=== PATIENT | male | born 1995 | race Caucasian/White ===

== ENCOUNTER 2021-02-22 08:57 | Outpatient (CLI) | payer OTHER ==
--- NOTE | 2021-02-22 10:03 | SLEEP CARE CONSULTATION ---
Information from patient questionnaire entered by Phillip Lucas MA. I have reviewed and concur with the information entered by Phillip Lucas MA. This document represents the service I personally performed and the decisions made by me, Nancy Hussein ARNP. History of Present Illness Service Date and Time: 02/22/2021 0857 Reason for Visit: New patient (ONSET 11/25, NO PRIORS) Chief Complaint: reports: Insomnia, Unrefreshed sleep, Snoring, Excessive daytime sleepiness, Fatigue, Frequent awakenings at night. denies: Observed pauses in breathing Date of Onset: 3 YEARS Usual bedtime: 11:00 PM Time it takes to fall asleep: SOMETIMES HOURS, SOMETIMES IMMEDIATE. Snores at night: Yes Observed to quit breathing while asleep: No Sleeps alone due to snoring: No Number of times waking at night: 2-5 Reasons for waking at night: reports: Snoring (1-2 times), Bathroom, Other (unknown reasons) Toss, Turn, or Twitch while sleeping: Yes Recalls having dreams: Yes Feels refreshed in the morning: No Morning headache: No Sleepy or fatigued during the day: Yes Ever fallen asleep while driving: Yes (drowsy driving, no accidents; just 1-2 times) Takes day naps: Yes (tries not to nap; sometimes will find himself falling asleep in his chair) Dreams during day naps: No Prior sleep studies: No Additional HPI information: I had the pleasure of seeing LINDA BLUNT today regarding the possibility of him having a sleep disorder. His current complaints are excessive daytime sleepiness, fatigue, frequent night awakenings, insomnia and unrefreshed sleep. He states sometimes he falls asleep really fast and other times he is awake all night. In last two weeks is sleeping more but not being able to sleep at night has been more of the norm. He has been told he snores but no pauses in breathing. He states this started about 3 years ago and this was a year or so after he joined the [email or web address]. He states he rarely feels rested in the morning but will wake up alert and ready to go, sometimes at 3 AM. He is on a set day schedule for the last year. He has done shift work in past. He is on Adderall for his ADD. He works out and is trying to increase muscle mass. 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 Patient is and lives in [place]. Have you smoked in the past 12 months: No Cigarettes per day (20/pack): 10 Years of smokin Quit date: 2017 Smoking Pack Years: 2.5 Alcohol use: Yes Alcohol amount and frequency: 1-2 X WEEKLY Caffeine use: Yes Caffeine amount and frequency: 1-2 CUPS X DAILY Family History Family history of sleep disordered breathing: Yes Family Hx Sleep Apnea: Father: Snoring, Other: Sleep apnea - Treated (UNCLE) Allergies and Home Medications Drug allergies reviewed: Yes (NKDA) Home medication list reviewed: Yes Allergy and home medication list: Adderall Review of Systems Weight gain over past 5 years: 40-50 Cardiovascular: reports: high blood pressure (last few times taken) Gastrointestinal: denies: heartburn Neurological: reports: head trauma (multiple times hitting head, no evals after them). denies: headaches Psychiatric: reports: Attention Deficit Hyperactivity, anxiety, depression Ear/Nose/Throat: reports: nasal congestion. denies: dry mouth/throat, injury to nose, tonsillectomy, wisdom teeth removed Endocrine: denies: thyroid disease Musculoskeletal: reports: back pain Physical Exam Vital signs obtained and entered by: Roula LUCAS CMA AAMA Blood Pressure: 145/98 (RIGHT, PULES 72) Cuff size: wrist Heart Rate: 74 O2 Saturation: 98 (WITH PAPER MASK) Height: 6 ft Weight: 219 lb Body Mass Index: 29.7 BMI Classification: Overweight Neck circumference: 16 (inches) Mouth and throat: narrow oropharynx Soft palate: long Hard palate: arched Uvula: long Uvula visualization: 50% Mallampati Class II Tongue: enlarged in size with teeth samaniego on lateral edges Tonsils: small Heart: regular rate and rhythm Lungs: clear bilaterally Impression and Plan 1. Suspected Obstructive Sleep Apnea-Hypopnea Syndrome, as suggested by a history of loud and irregular snoring, frequent awakening during the night, unrefreshed sleep, cognitive impairment, and excessive daytime sleepiness. Narrow oropharynx and obesity are common predisposing factors for obstructive sleep apnea-hypopnea syndrome. I recommend proceeding to polysomnography to confirm the diagnosis and to assess severity. If the patient has significant sleep disordered breathing, a manual CPAP titration study will also be performed to find the optimal treatment pressure. I informed the patient of what the sleep studies involve and after some discussion, obtained agreement to proceed. The pathophysiology of obstructive sleep apnea-hypopnea syndrome was discussed with the patient and health risks of cardiovascular and cerebrovascular disease if not treated. Risks of drowsy driving discussed in detail and patient advised to avoid long distance driving and to well puller at the first sign of drowsiness. Patient agreed to plan. * Schedule polysomnography +- manual CPAP titration study and return in 1-2 weeks after the study to discuss result and initiate therapy. * Avoid long distance driving or driving when feeling sleepy. * Avoid alcohol, sedative and muscle relaxant around bedtime. * Attempt to lose weight. * Review instructions provided by trained office staff on how to prepare for the sleep study. * Return for follow-up after sleep study completed. Counseling Topics: Weight loss health impact Visit Type: In Office Time Spent with Patient (minutes): 30 Provider Statement: I spent 100% of the Face to Face Visit with the patient with greater than 50% spent counseling the patient and coordination of care.
[2021-02-22 10:04] VITALS: BP 145/98
== END 2021-02-22 08:58 | disposition home or self-care (01) ==
LOC: SC 08:57
PROVIDERS: ATTEND Nurse Practitioner Family
DX: R06.83 Snoring (principal); G47.8 Other sleep disorders; G47.10 Hypersomnia, unspecified; R41.89 Other symptoms and signs involving cognitive functions and awareness
CPT/HCPCS: 99203; 99212

== ENCOUNTER 2021-04-10 20:40 | Outpatient (CLI) | payer OTHER | END 2021-04-10 20:41 | disposition home or self-care (01) | LOC: SC 20:40 | PROVIDERS: ATTEND Nurse Practitioner Family | DX: R06.83 Snoring (principal); G47.8 Other sleep disorders; R53.83 Other fatigue; G47.10 Hypersomnia, unspecified | CPT/HCPCS: 95810 ==

== ENCOUNTER 2021-04-22 14:01 | Outpatient (CLI) | payer OTHER ==
[2021-04-22 14:21] VITALS: BP 118/72
--- NOTE | 2021-04-22 14:21 | SLEEP CARE CONSULTATION ---
Information from patient questionnaire entered by Phillip Gonzales MA. I have reviewed and concur with the information entered by Phillip Gonzales MA. This document represents the service I personally performed and the decisions made by Jovita marrero Caren J, ARNP. History of Present Illness Service Date and Time: 04/22/2021 1401 Initial Marlow Sleepiness Scale score: 7 (IN 2021) Current Marlow Sleepiness Scale score: 4 (04/2021) Additional HPI information: LINDA BLUNT returns for follow up and results of the recently performed polysomnography. The patient was informed of the following findings: No significant sleep disordered breathing with an average AHI of 1.4 and zeus oxygen saturation of 92%. I explained the pathophysiology behind obstructive sleep apnea. Patient does not have sleep apnea and was advised how weight gain could increase the risk of developing sleep apnea in the future. Patient has light to moderate snoring. Snoring can be reduced by weight loss. Weight loss is best achieved with diet consult. Patient instructed to contact PCP for referral. Snoring can also be treated with an oral appliance from a dentist. Advised to check insurance coverage. In addition, an ENT evaluation can be do to see if other treatment is indicated. Patient counseled not drink alcohol less than 4 hours before bedtime as it can increase snoring and apnea. Patient was cautioned about risks of drowsy driving until sleepiness symptoms resolve. Sleep Study - Results Type of Sleep Study: Polysomnography (F/U POLY) Prior sleep studies: No Polysomnography/Home Sleep Study results: IMPRESSION: The quality of the study is good. The patient had slightly reduced sleep efficiency due to frequent awakenings during the night. The sleep architecture was abnormal for sleep fragmentation and reduced amount of time spent in slow wave sleep (N3). Respiratory monitoring showed no significant sleep disordered breathing (AHI = 1.4) or hypoxia (zeus oxygen saturation of 92%). The patient slept adequately in supine position (supine AHI = 0.4; non-supine = 2.06). Snore was infrequent and light in intensity. There was no significant periodic leg movement of sleep. Cardiac rhythm was normal sinus rhythm without significant arrhythmia. No abnormal behavior (parasomnia) observed during the night. Allergies and Home Medications Home medication list reviewed: Yes (no changes) Review of Systems Review of systems same as previous: Yes (no changes) Physical Exam Vital signs obtained and entered by: LILIAN STONE Blood Pressure: 118/72 (RIGHT, PULSE 86, RESP 14, ) Cuff size: wrist Heart Rate: 91 O2 Saturation: 98 (PAPER MASK) Height: 6 ft Weight: 220 lb (WITH CLOTHES) Body Mass Index: 29.8 BMI Classification: Overweight Impression and Plan 1. Snoring but no significant sleep disordered breathing. Patient advised that often weight loss will reduce snoring as well as apnea risk. An oral appliance can also be used for snoring. This would require a dental consultation. Patient cautioned not to use other online appliances as can cause bite issues. A list of accredited dentists in [facility] and one local dentist who makes oral appliances is available in office. Patient is advised to check if insurance will cover. An ENT consult can also be helpful to determine if any other treatment is an option. 2. Insomnia, unspecified. Insomnia is generally caused by an irregular sleep schedule, spending too much time in bed, napping, caffiene, electronics, lack of a relaxing bedtime ritual and clock watching. Other factors can include anxiety/depression, pain, medications, and obstructive sleep apnea. First I counseled the patient on the importance of a regular sleep schedule, starting with the wake time. I explained the homestatic sleep drive and how maintaining a regular wake time will allow the patient to be tired enough to sleep 15-16 hours later. By waking at the same time, the patient will also feel more alert. This can also be assisted by exposure to bright light for a minimum of 15 minutes a day upon waking. Most caffeine is to be stopped after lunch as it has a 6 hour half life and reduce sleep latency and efficiency. In addition, it is important to have a relaxing ritual about 30-60 minutes before bedtime to allow the mind/body transition from an active day to sleep. Electronics should be avoided 1-2 hours before bedtime as the bright light can reduce the endogenous melatonin and the activity of the computer, tablet, cell phone etc can be alerting. TV is okay but content needs to be relaxing and the brightness dimmed. A warm bath or shower is another way to assist transition to sleep. In addition, it is important to have a sleep environment conducive to sleep such as a comfortable bed, comfortable temperature and quiet. Instead if awakened after sleep, the patient is to position for comfort or use bathroom and return to sleep. If unable to go to sleep in an estimated 20 minutes of more, it is advised to leave the bedroom and engage in a quiet activity until sleepy enough to return to bed. If unable to sleep due to things on the mind, it is recommended to write out the concerns or list to do as a release then return to a quiet activity until sleepy enough to return to bed. This is to be repeated as often as necessary to associate the bed with sleep and not frustration to get to sleep. [facility] How to Sleep Better and Understanding Insomnia pamphlets given and reviewed. * Attempt to lose weight * Avoid alcohol consumption near bedtime * The patient is cautioned about driving until sleepiness is completely resolved. * Return as needed for follow up. Counseling Topics: Weight loss health impact Visit Type: In Office Time Spent with Patient (minutes): 20 Provider Statement: I spent 100% of the Face to Face Visit with the patient with greater than 50% spent counseling the patient and coordination of care.
== END 2021-04-22 14:02 | disposition home or self-care (01) ==
LOC: SC 14:01
PROVIDERS: ATTEND Nurse Practitioner Family
DX: R06.83 Snoring (principal); G47.00 Insomnia, unspecified; E66.3 Overweight; Z68.29 Body mass index [BMI] 29.0-29.9, adult
CPT/HCPCS: 99212; 99213

== ENCOUNTER 2021-05-23 10:33 | Emergency (ER) | payer OTHER ==
[2021-05-23 11:05] LABS: BILIRUBIN,URINE NEGATIVE (NEGATIVE); GLUCOSE, URINE (UA) NEGATIVE (NEGATIVE); KETONES,URINE (UA) NEGATIVE (NEGATIVE); LEUKOCYTE ESTERASE, URINE NEGATIVE (NEGATIVE); NITRITE,URINE NEGATIVE (NEGATIVE); OCCULT BLOOD,URINE NEGATIVE (NEGATIVE); PROTEIN,URINE NEGATIVE (NEGATIVE); UROBILINOGEN,URINE 0.2 (NORMAL) E.U./dL (NORMAL)
[2021-05-23 11:07] LABS: BASOPHILS % (AUTO) 0.5 %; EOSINOPHILS # (AUTO) 0.1 10^3/uL (0.0-0.7); EOSINOPHILS % (AUTO) 1.4 %; HCT - HEMATOCRIT 43.4 % (42.0-52.0); HGB - HEMOGLOBIN 15.6 g/dL (14.0-18.0); LYMPHOCYTES % (AUTO) 10.9 %; MEAN CORPUSCULAR HEMOGLOBIN 31.8 pg (27.0-31.0); MEAN CORPUSCULAR HGB CONC 35.9 g/dL (32.0-36.0); MEAN CORPUSCULAR VOLUME 88.4 fL (80.0-94.0); MEAN PLATELET VOLUME 9.3 fL (7.4-11.4); MONOCYTES # (AUTO) 0.6 10^3/uL (0.0-1.0); MONOCYTES % (AUTO) 7.1 %; NEUTROPHILS # (AUTO) 6.9 10^3/uL (1.5-6.6); NEUTROPHILS % (AUTO) 79.6 %; PLT - PLATELET COUNT 285 10^3/uL (130-450); RED BLOOD COUNT 4.91 10^6/uL (4.70-6.10); RED CELL DISTRIBUTION WIDTH 11.6 % (12.0-15.0); WHITE BLOOD COUNT 8.7 x10^3/uL (4.8-10.8)
[2021-05-23 11:17] LABS: CLARITY,URINE CLEAR (CLEAR)
[2021-05-23 11:22] LABS: ALBUMIN 4.3 g/dL (3.2-5.5); ALBUMIN/GLOBULIN RATIO 1.4 (1.0-2.2); BILIRUBIN,TOTAL 1.3 mg/dL (0.2-1.0); CREATININE 0.9 mg/dL (0.6-1.2); POTASSIUM 3.8 mmol/L (3.5-5.0); TOTAL PROTEIN 7.3 g/dL (6.7-8.2)
--- NOTE | 2021-05-23 12:32 | ED Physician Documentation ---
PD HPI ABD PAIN - Stated complaint Stated Complaint: LT SIDE PX - Chief complaint Chief Complaint: Abd Pain - History obtained from History obtained from: Patient - History of Present Illness Timing - duration: Days (4) Timing - details: Gradual onset Pain level max: 7 Pain level now: 4 Quality: Aching, Pain Location: LLQ Associated symptoms: No: Nausea, Vomiting, Hematemesis, Melena, Hematochezia - Additional information Additional information: 25-year-old male presents to the emergency department with left lower quadrant abdominal pain. Started 3 to 4 days ago. Nothing seems to make the pain better or worse. Has had some constipation. States normal bowel movement today. No blood in the stool. Has not had similar symptoms previously. No family history of inflammatory bowel disease. Review of Systems Constitutional: denies: Fever, Chills Respiratory: denies: Cough GI: denies: Vomiting, Hematemesis, Bloody / black stool : denies: Dysuria, Frequency, Hesitancy Skin: denies: Rash Musculoskeletal: denies: Neck pain, Back pain Neurologic: denies: Headache PD PAST MEDICAL HISTORY - Past Medical History Past Medical History: No - Present Medications Home Medications: Ambulatory Orders Medication Instructions Recorded Confirmed No Known Home Medications 05/23/21 05/23/21 - Allergies Allergies/Adverse Reactions: Allergies Allergy/AdvReac Type Severity Reaction Status Date / Time No Known Drug Allergies Allergy Verified 05/23/21 10:46 - Social History Does the pt smoke?: No Smoking Status: Never smoker - Immunizations Immunizations are current?: Yes PD ED PE NORMAL - Vitals Vital signs reviewed: Yes - General General: Alert and oriented X 3, No acute distress - HEENT HEENT: Moist mucous membranes - Neck Neck: Supple, no meningeal sign - Cardiac Cardiac: RRR - Respiratory Respiratory: No respiratory distress, Clear bilaterally - Abdomen Abdomen: Soft, Non distended, Other (Tender palpation left lower quadrant. No peritoneal signs.) - Back Back: No CVA TTP, No spinal TTP - Derm Derm: Warm and dry - Neuro Neuro: Alert and oriented X 3 - Psych Psych: Normal mood, Normal affect Results - Vitals Vitals: Vital Signs - 24 hr 05/23/21 05/23/21 05/23/21 10:46 13:27 14:03 Temperature 37.1 C Heart Rate 105 H 98 75 Respiratory 18 18 15 Rate Blood Pressure 157/104 H 110/69 114/78 O2 Saturation 97 97 99 Oxygen O2 Source Room air - Labs Labs: Laboratory Tests 05/23/21 05/23/21 05/23/21 10:55 11:03 11:03 WBC 8.7 RBC 4.91 Hgb 15.6 Hct 43.4 MCV 88.4 MCH 31.8 H MCHC 35.9 RDW 11.6 L Plt Count 285 MPV 9.3 Neut # (Auto) 6.9 H Lymph # (Auto) 1.0 L [place] # (Auto) 0.6 Eos # (Auto) 0.1 Baso # (Auto) 0.0 Absolute Nucleated RBC 0.00 Nucleated RBC % 0.0 Sodium 131 L Potassium 3.8 Chloride 96 L Carbon Dioxide 26 Anion Gap 9.0 BUN 13 Creatinine 0.9 Estimated GFR (MDRD) 101 Glucose 110 H Calcium 9.0 Total Bilirubin 1.3 H AST 30 ALT 45 Alkaline Phosphatase 47 Total Protein 7.3 Albumin 4.3 Globulin 3.0 Albumin/Globulin Ratio 1.4 Lipase 27 Urine Color LIGHT YELLOW Urine Clarity CLEAR Urine pH 7.0 Ur Specific [place] <=1.005 Urine Protein NEGATIVE Urine Glucose (UA) NEGATIVE Urine Ketones NEGATIVE Urine Occult Blood NEGATIVE Urine Nitrite NEGATIVE Urine Bilirubin NEGATIVE Urine Urobilinogen 0.2 (NORMAL) Ur Leukocyte Esterase NEGATIVE Ur Microscopic Review NOT INDICATED Urine Culture Comments NOT INDICATED - Rads (name of study) CT abdomen pelvis Radiology: Final report received, EMP read contemporaneously, See rad report PD MEDICAL DECISION MAKING - ED course Complexity details: reviewed results, re-evaluated patient, considered differential, d/w patient, d/w family ED course: 25-year-old male with left lower quadrant abdominal pain. Has a mild degree of focal inflammatory change in the distal descending colon. Afebrile. Pain well controlled in the emergency department. Possible ulcerative colitis? Recommend that he follow-up with his doctor for further care. No indication for antibiotics at this time. Afebrile. Patient and family counseled regarding signs and symptoms for which I believe and urgent re-evaluation would be necessary. Patient with good understanding of and agreement to plan and is comfortable going home at this time This document was made in part using voice recognition software. While efforts are made to proofread this document, sound alike and grammatical errors may occur. IMPRESSION: A mild degree of focal inflammatory change can be seen involving the distal descending colon. No findings of perforation or abscess are seen. Borderline prominent mesenteric lymph nodes can be seen, which are nonspecific, commonly seen in patients with chronic inflammatory change. Departure - Departure Disposition: 01 Home, Self Care Clinical Impression: Abdominal pain Qualifiers: Abdominal location: left lower quadrant Qualified Code(s): R10.32 - Left lower quadrant pain Condition: Good Instructions: ED Colitis Ulcerative, ED Abdominal Pain Unkn Cause Male Follow-Up: JOSH WINCHESTER DO [Primary Care Provider] - Within 1 week David River MD [Provider Admit Priv/Credential] - Dulce Vásquez MD [Provider Admit Priv/Credential] - Comments: Your CT scan does show inflammation in the left lower quadrant. There is concern for possible inflammatory bowel disease such as ulcerative colitis. It is recommended that you have a colonoscopy. Please return if you worsen. Follow-up with your doctor for further care. Your CT results are below. IMPRESSION: A mild degree of focal inflammatory change can be seen involving the distal descending colon. No findings of perforation or abscess are seen. Borderline prominent mesenteric lymph nodes can be seen, which are nonspecific, commonly seen in patients with chronic inflammatory change. Discharge Date/Time: 05/23/21 14:05
[2021-05-23] MEDS ORDERED: IOVERSOL 320 100 ML VIAL IVP ONE ×2 (12:55→15:14)
--- NOTE | 2021-05-23 13:09 | CT Report ---
PROCEDURE: Abdomen/Pelvis W INDICATIONS: LLQ abd pain CONTRAST: IV CONTRAST: Optiray 320 ml: 100 PO CONTRAST: *NO PO CONTRAST TECHNIQUE: After the administration of IV contrast, 5 mm thick sections acquired from the diaphragms to the symp hysis. 5 mm thick coronal and sagittal reformats were acquired. For radiation dose reduction, the f ollowing was used: automated exposure control, adjustment of mA and/or kV according to patient size. COMPARISON: None. FINDINGS: Image quality: Excellent. ABDOMEN: Lung bases: Lung bases are clear. Heart size is normal. Solid organs: Liver and spleen are normal in size and enhancement. Gallbladder wall does not appear thickened. Biliary system is non dilated. Pancreas enhances normally. No adrenal nodules. Kidn eys demonstrate normal size and enhancement, without hydronephrosis. Peritoneum and bowel: In this patient with this given history, scrutiny is given to left lower quadr ant. Within the distal descending colon, focal bowel wall thickening and inflammatory change can be s een, as on series 3 image 67. The colon otherwise demonstrates an unremarkable appearance. No dilated loops of small bowel are seen . A normal appendix is incidentally noted. Nodes and vessels: Borderline prominent mesenteric lymph nodes are seen. No retroperitoneal adenopat hy by size criteria. Aorta and inferior vena cava are normal in size. Miscellaneous: No ventral hernias. PELVIS: Genitourinary: Bladder wall thickness is normal. Miscellaneous: No inguinal hernias or adenopathy. Bones: No suspicious bony lesions. No vertebral body compression fractures. A Schmorl's node is in cidentally noted at the superior pole of the L5 level. IMPRESSION: A mild degree of focal inflammatory change can be seen involving the distal descending c olon. No findings of perforation or abscess are seen. Borderline prominent mesenteric lymph nodes can be seen, which are nonspecific, commonly seen in magdaleno ents with chronic inflammatory change. Reviewed by: Francesco Bailey MD on 05/23/2021 12:08 PM RA Approved by: Francesco Bailey MD on 05/23/2021 12:08 PM RA Station ID: [id number]
[2021-05-23 14:04] VITALS: BP 114/78
== END 2021-05-23 14:05 | disposition home or self-care (01) ==
LOC: ED 10:33
DX: R10.32 Left lower quadrant pain (principal)
CPT/HCPCS: 36415; 74177; 80053; 81003; 83690; 85025; 99282; 99284; Q9967; 81001; 87086